=== PATIENT | female | born 1970 | race African-American/Black ===

== ENCOUNTER 2016-05-29 21:08 | Emergency (ER) | payer SELFPAY ==
[~2016-05-29] VITALS: Ht 165.1 cm; Wt 89.1 kg
[2016-05-29] MEDS ORDERED: BENA5TAB26 PO (21:14)
[2016-05-29] MEDS ORDERED: ONDANSETRON HCL 4 MG/2 ML VIAL IVP ONE (21:45)
[2016-05-29] MEDS ORDERED: MORPHINE SULFATE 4 MG/ML SYRINGE IVP ONE (21:45)
[2016-05-29] MEDS ORDERED: MIDAZOLAM HCL 5 MG/ML VIAL IVP ONE (22:15)
[2016-05-29] MEDS ORDERED: FentaNYL CITRATE-PF 100 MCG/2 ML VIAL IVP ONE (22:15)
[2016-05-30 01:02] VITALS: BP 134/96
== END 2016-05-30 01:21 | disposition home or self-care (01) ==
LOC: EMS 21:11
DX: S53.124A Posterior dislocation of right ulnohumeral joint, initial encounter (principal); W19.XXXA Unspecified fall, initial encounter; Y93.41 Activity, dancing; Y92.89 Other specified places as the place of occurrence of the external cause; Y99.8 Other external cause status
CPT/HCPCS: 24600; 73080; 96374; 96375; 99152; 99285; J2250; J2270; J2405; J3010; 99151